=== PATIENT | female | born 1975 | race Caucasian/White ===

== ENCOUNTER 2019-08-06 07:28 | Inpatient (IN) | payer MEDICARE ==
[~2019-08-06] VITALS: Ht 162.6 cm; Wt 87.9 kg
--- NOTE | ~2019-08-06 | HEMODYNAMI ---
PATIENT:MEI ORTIZ MEDICAL RECORD: [id number] : 75 LOCATION:[facility].2136 ADMISSION DATE: 08/06/19 Generatedon:08/09/201914:53 Patient name: MEI ORTIZ Patient #: [id number] SSN: D OB: 1975 Date of study: 08/09/2019 Page: Of Hemodynamic Procedure Report Patient Data Patient Demographics Procedure consent was obtained First Name: MEI Gender: Female Last Name: DIANA : 1975 Patient #: [id number] Age: 44 year(s) Race: Unknown Additional ID: [id number] Contact details [address]: [address] [place] [address] STREET State: [place] City: [place] Zip code: [address] Past Medical History Allergies: No known allergies Admission Admission Data Admission Date: 08/06/2019 Admission Time: 10:01 Room #: [facility]6 Height (in.): 64 BSA: 1.94 (m2) Height (cm.): 162.56 BMI: 33.47 (kg/m2) Weight (lbs.): 195 Weight (kg.): 88.45 Procedure Procedure Types Cath Procedure Peripheral Cath Diagnostic Procedure Coil Binder Peripheral Procedures Fistula Fistulagram with Plasty Procedure Description Procedure Date Procedure Date: 08/09/2019 Procedure Start Time: 13:09 Procedure Staff Name Function Toño Og MD Performing Physician Jovanna Young RT Medical Attendant Ally Crum RN Nurse Mckay Allan RT Scrub Dian Martinez RN Nurse Procedure Data Cath Procedure Fluoroscopy Diagnostic fluoroscopy Total fluoroscopy Time: time: 13.8 min 13.8 min Diagnostic fluoroscopy Total fluoroscopy dose: 297 dose: 297 mGy mGy Contrast Material Contrast Material Type Amount (ml) Isovue 300 105 Procedure Medications Medication Administration Route Dosage Heparin Flush Bag added to field 2 bags (1000units/500ml NS) Lidocaine 1% added to field 20 Versed I.V. 1 mg Fentanyl I.V. 50 mcg Versed I.V. 1 mg Fentanyl I.V. 50 mcg Heparin Bolus I.V. 5000 units Versed I.V. 0.5 mg Fentanyl I.V. 25 mcg Versed I.V. 0.5 mg Fentanyl I.V. 25 mcg Hemodynamics Rest BSA: 1.94 (m2) O2 Consumption: Estimated: 192.02 (ml/min) O2 Consumption indexed : Estimated:98.98 (ml/min/m) Heart Rate: 67 (bpm) Snapshots Pre Cath Intra NCS Post Cath Vital Signs Time Heart Resp SPO2 etCO2 NIBP (mmHg) Rhythm Pain Sedation Rate (ipm) (%) (mmHg) Status Level (bpm) 12:45:45 69 17 100 32 127/82(103) NSR 0 (11) 10(A) , No pain 12:50:03 66 18 99 30.5 116/72(91) NSR 0 (11) 10(A) , No pain 12:54:13 66 18 100 31.2 117/80(101) NSR 0 (11) 10(A) , No pain 12:58:23 69 17 99 23.8 133/77(109) NSR 0 (11) 10(A) , No pain 13:02:37 65 16 99 32.8 129/83(104) NSR 0 (11) 10(A) , No pain 13:06:47 70 17 99 32.7 124/87(105) NSR 0 (11) 10(A) , No pain 13:10:56 68 18 99 33.5 131/85(109) NSR 0 (11) 10(A) , No pain 13:15:09 65 16 99 32 130/86(111) NSR 0 (11) 10(A) , No pain 13:19:23 64 16 99 32 132/81(108) NSR 0 (11) 8(A) , No pain 13:23:36 66 11 99 23.8 123/77(103) NSR 0 (11) 8(A) , No pain 13:27:50 66 10 97 34.2 112/70(85) NSR 0 (11) 8(A) , No pain 13:31:54 69 10 97 42.4 115/75(94) NSR 0 (11) 8(A) , No pain 13:36:02 66 10 99 34.9 119/68(94) NSR 0 (11) 8(A) , No pain 13:40:12 65 11 98 34.2 120/76(94) NSR 0 (11) 8(A) , No pain 13:44:24 66 11 98 26.8 120/76(95) NSR 0 (11) 8(A) , No pain 13:48:32 65 12 99 37.2 120/74(94) NSR 0 (11) 8(A) , No pain 13:52:43 65 10 98 32 114/74(91) NSR 0 (11) 8(A) , No pain 13:56:53 66 11 98 31.2 119/73(100) NSR 0 (11) 8(A) , No pain 14:01:03 66 11 98 31.9 117/79(98) NSR 0 (11) 8(A) , No pain 14:05:11 68 11 98 34.2 125/82(102) NSR 0 (11) 8(A) , No pain 14:09:25 64 11 98 30.4 115/70(97) NSR 0 (11) 8(A) , No pain 14:13:35 66 11 98 32 113/74(89) NSR 0 (11) 8(A) , No pain 14:17:45 66 10 97 31.2 119/70(87) NSR 0 (11) 8(A) , No pain 14:21:59 67 11 98 30.5 111/69(86) NSR 0 (11) 8(A) , No pain 14:26:09 67 11 97 31.2 116/68(91) NSR 0 (11) 8(A) , No pain 14:30:21 71 11 97 37.9 108/66(85) NSR 0 (11) 8(A) , No pain 14:34:29 68 12 91 37.9 119/70(94) NSR 0 (11) 8(A) , No pain 14:38:38 66 13 98 28.2 119/76(92) NSR 0 (11) 8(A) , No pain 14:42:50 65 10 97 32 112/71(87) NSR 0 (11) 8(A) , No pain 14:47:00 71 9 98 28.2 111/70(100) NSR 0 (11) 8(A) , No pain 14:51:06 72 12 98 29.7 108/70(76) NSR 0 (11) 8(A) , No pain Medications Time Medication Route Dose Verified Delivered Reason Notes Effe ctiveness by by 13:12:36 Heparin Flush added 2 Toño Lundberg used for Bag to bags Lenka Og MD procedure (1000units/500ml field MUÑOZ NS) 13:12:50 Lidocaine 1% added 20ml Toño Lundberg for local to vial Lenka Og MD anesthetic field 13:15:11 Versed I.V. 1 mg Toño Ally for Radames Og RN sedation 13:15:28 Fentanyl I.V. 50 Toño Casei for mcg Juan Og RN sedation 13:21:38 Versed I.V. 1 mg Toño Dian for Juan Og RN sedation 13:21:46 Fentanyl I.V. 50 Toño Casei for mcg Juan Og RN sedation 13:24:57 Heparin Bolus I.V. 5000 Toño Dian Per units Juan Og RN physician 13:50:54 Versed I.V. 0.5 Toño Dian for mg Juan Og RN sedation 13:51:04 Fentanyl I.V. 25 Toño Dian for mcg Juan Og RN sedation 14:06:00 Versed I.V. 0.5 Toño Dian for mg Juan Og RN sedation 14:06:10 Fentanyl I.V. 25 Toño Dian for mcg Juan Og RN sedation Procedure Log Time Note 12:40:30 Patient Height : 64 inches 12:40:35 Patient Weight : 195 lbs 12:41:01 Time tracking: Regular hours (M-F 7:00 - 5:00) 12:41:25 Plan of Care:Hemodynamics will remain stable., Cardiac rhythm will remain stable., Comfort level will be maintained., Respiratory function will remain adequate., Patient/ family verbilizes understanding of procedure., Procedure tolerated without complication., Recovers from procedure without complications.. 12:41:39 Patient received from Med II to IR Alert and oriented. Tansferred to table in Supine position. 12:41:44 Signed procedure consent form obtained from patient. 12:41:58 H&P Date Dictated: 08/09/2019 Within 30 days and on chart.. 12:41:59 Pre-procedure instructions explained to patient. 12:42:00 Pre-op teaching completed and patient verbalized understanding. 12:42:02 Family unavailable. 12:42:04 Patient NPO since Midnight. 12:42:15 Patient allergic to No known allergies 12:42:24 Patient diabetic? No. 12:42:25 - 12:42:27 ----Pre-sedation anethsthesia assessment.---- 12:42:30 Previous problem with sedation/anesthesia? No ? 12:42:33 Snore? Yes 12:42:35 Sleep apnea? No 12:42:37 Deviated septum? No 12:42:39 Opens mouth fully? Yes 12:42:41 Sticks out tongue? Yes 12:42:50 Airway obstruction? No ? 12:42:54 Dentures? No ? 12:42:57 - 12:43:06 IV patent on arrival in right forearm with D5/.45%NaCl at KVO. 12:43:23 Left Arm was prepped with chlora-prep and draped in sterile fashion. 12:43:25 - 12:43:31 Use device set IR Diagnostic 12:43:32 Tegaderm 4 x 4 (1626W) opened to sterile field. 12:43:33 Sterile Angiographic Pack opened to sterile field. 12:43:34 Bag Decanter (2002S) opened to sterile field. 12:43:57 St Sid 6FR 5cm sheath opened to sterile field. 12:43:59 GLIDE CATHETER 5FR ANGLED 65cm (CG507) opened to sterile field. 12:44:09 Micropuncture VSI 4FR kit opened to sterile field. 12:44:15 DOC .035 wire ([id number]) opened to sterile field. 12:44:33 - 12:44:36 ECG and BP/O2 sat monitors applied to patient. 12:44:38 Vital chart was started 12:44:40 Baseline sample Acquired. 12:44:41 Full Disclosure recording started 12:44:43 - 12:45:15 Fire Safety Assessment: A--An alcohol-based skin anteseptic being used preoperatively., C--Open oxygen or nitrous oxide is being used. 12:45:38 5) <15 or on dialysis Very severe, or end stage kidney failure. 13:02:06 - 13:08:59 Physician arrived 13:09:00 --------ALL STOP TIME OUT------ 13:09:01 Final Timeout: patient, procedure, and site verified with staff and physician. All members of the team are in agreement. 13:09:23 Procedure started. 13:09:30 Local anesthetic to left arm with Lidocaine 1% by Toño Og MD.INITIAL ACCESS ONLY 13:09:34 Venous access obtained using ultrasound guidance. 13:12:36 Heparin Flush Bag (1000units/500ml NS) 2 bags added to field was administered by Toño Og MD; used for procedure; Verbal order read back and verified. 13:12:50 Lidocaine 1% 20ml vial added to field was administered by Toño Og MD; for local anesthetic; Verbal order read back and verified. 13:15:11 Versed 1 mg I.V. was administered by Ally Crum RN; for sedation; Verbal order read back and verified. 13:15:28 Fentanyl 50 mcg I.V. was administered by Dian Martinez RN; for sedation; Verbal order read back and verified. 13:21:38 Versed 1 mg I.V. was administered by Dian Martinez RN; for sedation; Verbal order read back and verified. 13:21:46 Fentanyl 50 mcg I.V. was administered by Dian Martinez RN; for sedation; Verbal order read back and verified. 13:24:57 Heparin Bolus 5000 units I.V. was administered by Dian Martinez RN; Per physician; Verbal order read back and verified. 13:29:45 Inflate balloon Inflation number: 1 A Evercross 6 x 6 x 135 Balloon ([id number]) was prepped and advanced across the Undefined1 , then inflated . 13:30:08 GRAY 260 wire (F43937) opened to sterile field. 13:30:21 INFLATOR BasixTOUCH (DT1575) opened to sterile field. 13:36:28 St Sid 6FR 5cm sheath opened to sterile field. 13:37:18 Arrow 6Fr TREROTOLA thrombectomy opened to sterile field. 13:38:32 GLIDE WIRE ANGLE 180cm (XZ0693) opened to sterile field. 13:41:31 Inflate balloon Inflation number: 2 A Evercross 5 x 4 x 135 Balloon ([id number]) was prepped and advanced across the Undefined1 , then inflated . 13:50:54 Versed 0.5 mg I.V. was administered by Dian Martinez RN; for sedation; Verbal order read back and verified. 13:51:04 Fentanyl 25 mcg I.V. was administered by Dian Martinez RN; for sedation; Verbal order read back and verified. 13:56:10 BENTSON 145cm wire (V70420) opened to sterile field. 13:59:52 GLIDE WIRE Super Stiff Angled 260cm (SU7638) opened to sterile field. 14:00:05 TORQUE DEVICE PLASTIC .038 ( TD01) opened to sterile field. 14:01:50 BENTSON 145cm wire (O75418) opened to sterile field. 14:05:09 Carmen 5Fr OTW embolectomy catheter opened to sterile field. 14:06:00 Versed 0.5 mg I.V. was administered by Dian Martinez RN; for sedation; Verbal order read back and verified. 14:06:10 Fentanyl 25 mcg I.V. was administered by Dian Martinez RN; for sedation; Verbal order read back and verified. 14:26:36 SUTURE ETHILON 2-0 BLK MONO FS opened to sterile field. 14:26:39 SUTURE ETHILON 2-0 BLK MONO FS opened to sterile field. 14:38:49 GLIDE WIRE ANGLE 180cm (CW9029) opened to sterile field. 14:42:06 GLIDE WIRE Super Stiff Angled 260cm (GY1303) opened to sterile field. 14:47:20 Procedure ended.(Physican Out) 14:47:29 Fluoroscopy time 13.80 minutes. 14:47:34 Fluoroscopy dose: 297 mGy 14:47:34 Flurop Dose total: 297 14:47:42 Contrast amount:Isovue 300 105ml. 14:50:43 Procedure and supply charges have been captured, reviewed, submitted an d are correct. 14:53:16 Report given to [employer] II. 14:53:40 Vital chart was stopped Intervention Summary Intervention Notes Time ActionType Lesion and Equipment Used Action# Pressure Duration Attributes 13:29:45 Inflate Undefined1 Evercross 6 x 6 1 0 00:00 balloon x 135 Balloon ([id number]) 13:41:31 Inflate Undefined1 Evercross 5 x 4 2 0 00:00 balloon x 135 Balloon ([id number]) Device Usage Item Name Manufacture Quantity Catalog Number Hospital Part Current M inimal Lot# / Charge Number Stock Stock Serial# Code Tegaderm 4 x 4 3M 1 1626W 555009 716479 101195 5 (1626W) Sterile Cardinal 1 [id number] 963911 255205 5 Angiographic Health Pack Bag Decanter Microtek 1 614826 48536 498394 5 () Medical Inc. St Sid 6FR 5cm St Sid 2 669825 120950 677735 5 [id number] sheath [id number] GLIDE CATHETER Terumo 1 CG507 644103 272005 5 5FR ANGLED 65cm (CG507) Micropuncture VSI VASCULAR 1 7266V 400310 851531 5 VSI 4FR kit SOLUTIONS DOC .035 wire Cook Medical 1 I74103 705103 904456 5 (W99696) Evercross 6 x 6 Medtronic 1 [id number] 358036 141620 5 x 135 Balloon ([id number]) GRAY 260 wire Cook Medical 1 I52794 127315 02047 937217 5 (N06123) INFLATOR Merit 1 SE9857 109551 470459 718040 5 [facility] (HA5113) Arrow 6Fr Teleflex 1 [id number] 929860 316971 756328 5 TREROTOLA thrombectomy GLIDE WIRE Terumo 2 XV7389 438191 899104 851008 5 ANGLE 180cm (GH0908) Evercross 5 x 4 Medtronic 1 [id number] 307551 786374 522016 5 x 135 Balloon ([id number]) BENTSON 145cm [employer] Medical 2 B58778 090626 738177 5 wire (X72885) GLIDE WIRE Terumo 2 AJ7994 498146 154247 625917 5 Super Stiff Angled 260cm (GG9519) TORQUE DEVICE [place] 1 TD01 558605 993577 843429 5 PLASTIC .038 ( Scientific TD01) Carmen 5Fr OTW Stauffer 1 [id number] 449871 701165 022218 5 embolectomy Lifesciences catheter SUTURE ETHILON Ethicon 2 664H 116957 399080 5 2-0 BLK MONO FS Signature Audit [place] Stage Time Signature Unsigned Intra-Procedure 08/09/2019 Jovanna Young 2:53:36 PM RT(R) [facility] [address] [place] [place] [address]
[2019-08-06] MEDS ORDERED: PREDNISONE1 MG PO (07:34)
[2019-08-06] MEDS ORDERED: FERROUS SULFAT325 MG PO (07:34)
[2019-08-06] MEDS ORDERED: CYCLOBENZAPRINE10 MG PO (07:34)
[2019-08-06] MEDS ORDERED: LIPITOR10 MG PO (07:35)
[2019-08-06] MEDS ORDERED: IMURAN50 MG PO (07:35)
[2019-08-06] MEDS ORDERED: MAG-OX 400 MG400 MG PO (07:35)
[2019-08-06] MEDS ORDERED: RENA-VITE TABL0.8 MG PO (07:35)
[2019-08-06] MEDS ORDERED: HYDRALAZINE HCL50 MG PO (07:36)
[2019-08-06] MEDS ORDERED: COREG25 MG PO (07:36)
[2019-08-06] MEDS ORDERED: NORVASC5 MG PO (07:36)
[2019-08-06] MEDS ORDERED: PHOSLO667 MG PO (07:36)
[2019-08-06] MEDS ORDERED: LASIX80 MG PO (07:37)
[2019-08-06] MEDS ORDERED: ULTRAM50 MG PO (07:37)
[2019-08-06] MEDS ORDERED: CYMBALTA30 MG PO (07:37)
--- NOTE | 2019-08-06 07:53 | NUR ---
URINE SPECIMEN SENT TO LAB; LABS DRAWN VIA LAB PERSONNAL.
[2019-08-06 08:03] LABS: BASOPHILS 0.4 % (0-2); HEMATOCRIT 28.2 % (36.0-48.0); IMMATURE GRANULOCYTES 0.2 % (0-5); LYMPHOCYTES 14.1 % (15-50); MCH 29.9 pg (26.0-34.0); MCHC 31.9 g/dL (31.0-37.0); MCV 93.7 fL (80.0-100.0); MEAN PLATELET VOLUME 8.4 fL (7.4-10.4); MONOCYTES 11.8 % (2-11); NEUTROPHILS 67.5 % (40-80); PLATELET COUNT 307 10x3/uL (130-400); RBC 3.01 10x6/uL (4.00-5.40); WBC 5.3 10x3/uL (4.8-10.8)
[2019-08-06 08:04] LABS: BILIRUBIN NEGATIVE (NEGATIVE); GLUCOSE NEGATIVE (NEGATIVE); KETONE NEGATIVE (NEGATIVE); NITRITE NEGATIVE (NEGATIVE); UROBILINOGEN NORMAL (NORMAL)
[2019-08-06 08:06] LABS: RED CELLS - URINE 0-5 /hpf (0-5)
[2019-08-06 08:07] LABS: BACTERIA MANY /hpf (NEGATIVE)
[2019-08-06 08:15] LABS: ANION GAP 12.5 mmol/L (8-16); CALCIUM 9.2 mg/dL (8.5-10.1); CARBON DIOXIDE 29.9 mmol/L (21.0-32.0); CREATININE - SERUM 3.2 mg/dL (0.6-1.3); POTASSIUM - SERUM 3.4 mmol/L (3.5-5.1)
[2019-08-06 08:22] LABS: ALBUMIN 2.6 g/dL (3.4-5.0); PROTEIN - SERUM 6.6 g/dL (6.4-8.2)
[2019-08-06 08:54] VITALS: BP 164/109
--- NOTE | 2019-08-06 09:48 | NUR ---
PT AWAKE AND ALERT; NO NEEDS NOTED; UPDATED ON PLAN OF CARE AND DELAYS IN CARE; WILL CONTINUE TO MONITOR.
--- NOTE | 2019-08-06 11:00 | NUR ---
CONSENT FORMS SIGNED
--- NOTE | 2019-08-06 11:10 | NUR ---
PT HAS TAKEN HER HOME MEDICATIONS WITH A SIP OF WATER, EKG, AND CHEST X-RAY COMPLETED PER REQUEST VERBAL PHONE ORDER.
--- NOTE | 2019-08-06 13:44 | NUR ---
I CALLED SURGERY AND SPOKE TO VI THE CONSENTS ARE WRONG IN WRITING THEM. SHE STATES THAT SHE HAS NO ORDERS EITHER. MYSELF AND DAVID MEZA PRIMARY NURSE PULLED CONSENTS OUT OF CHART, I CALLED AND TRIED TO TALK TO JAD ESQUEDA RN TO EXPLAIN WE CAN'T HAVE THIS WRITTEN PERMIT. SHE WENT AHEAD AND PLACED A NURSING MESSAGE IN THE SYSTEM SO THAT WE CAN RE-WRITE CONSENT.
--- NOTE | 2019-08-06 13:52 | NUR ---
INSERTION OF TUNNEL HEMODIALYSIS CATHER CONSET FROM TO BE COMPLETED FOR PT; RECIEVED FROM DR. RICHARD VIA VERBAL PHONE ORDER
--- NOTE | 2019-08-06 13:59 | NUR ---
NEW CONSENTS SIGNED FOR SX.
[2019-08-06 14:01] VITALS: BP 123/67
--- NOTE | 2019-08-06 14:06 | NUR ---
PT TAKEN TO SX VIA BED.
[2019-08-06 16:05] VITALS: BP 137/66
--- NOTE | 2019-08-06 16:05 | NUR ---
PT RETURNED FROM HEMOSPLIT PLACEMENT SX VIA BED. ALERT AND ORIENTED. C/O PAIN GAVE TRAMADOL. VS STBALE. RIGHT CHEST HEMOSPLIT DRESSING C/D/I ICE PACK ON CHEST. CALLED DIALYSIS AND STATED PT WAS BACK. THEY SAID THEY WILL CALL WHEN THEY ARE READY FOR PT. I VERBALIZED UNDERSTANDING.
--- NOTE | 2019-08-06 16:50 | NUR ---
PT TAKEN TO DIALYSIS VIA BED.
--- NOTE | 2019-08-06 17:13 | NUR ---
PT STATING SHE IS STILL IN A LOT OF PAIN AFTER RECEIVING TRAMADOL. CALLED AND SPOKE WITH ANAI OTOOLE AND SHE STATES GIVE NORCO 7.25 ONE TIME NOW AND BUPRENEX 0.2MG Q6HP. I VERBALIZED UNDERSTANDING.
--- NOTE | 2019-08-06 17:13 | NUR ---
PT STATING SHE IS STILL IN A LOT OF PAIN AFTER RECEIVING TRAMADOL. CALLED AND SPOKE WITH ANAI OTOOLE AND SHE STATES GIVE NORCO 7.5 ONE TIME NOW AND BUPRENEX 0.2MG Q6HP. I VERBALIZED UNDERSTANDING.
--- NOTE | 2019-08-06 17:31 | NUR ---
RN TO DO ADMISSION ASSESSMENT.
--- NOTE | 2019-08-06 18:08 | NUR ---
SCD'S PLACED ON PT'S LEGS BILATERALLY.
[2019-08-06 18:09] VITALS: BP 153/96
[2019-08-06 18:23] VITALS: BP 123/67; BMI 33.5
--- NOTE | 2019-08-06 19:30 | NUR ---
RECEIVED REPORT, WILL ASSUME CARE OF PT, IN DIALYSIS NOW
[2019-08-06 20:00] VITALS: BP 157/102
--- NOTE | 2019-08-06 20:18 | NUR ---
RECEIVED BACK FROM DIALYSIS, DENIES ANY NEEDS, BED IS LOW, SRX2, CALL LIGHT IN REACH, WILL CONTINUE PLAN OF CARE
[2019-08-07] VITALS: BP 148/99
[2019-08-07 04:00] VITALS: BP 148/96
--- NOTE | 2019-08-07 05:00 | NUR ---
I have reviewed this patient and I concur with the Shift Assessment completed by the Licensed Practical Nurse today this shift.
[2019-08-07 06:16] LABS: BASOPHILS 0 % (0-2); EOSINOPHILS 0 % (0-7); HEMATOCRIT 27.7 % (36.0-48.0); IMMATURE GRANULOCYTES 0.2 % (0-5); LYMPHOCYTES 6.9 % (15-50); MCH 30.4 pg (26.0-34.0); MCHC 32.5 g/dL (31.0-37.0); MCV 93.6 fL (80.0-100.0); MEAN PLATELET VOLUME 8.6 fL (7.4-10.4); MONOCYTES 8.3 % (2-11); NEUTROPHILS 84.6 % (40-80); PLATELET COUNT 343 10x3/uL (130-400); RBC 2.96 10x6/uL (4.00-5.40); RDW 16.6 % (11.5-14.5); WBC 6.5 10x3/uL (4.8-10.8)
[2019-08-07 06:28] LABS: ANION GAP 14.6 mmol/L (8-16); CALCIUM 8.8 mg/dL (8.5-10.1); CARBON DIOXIDE 27.1 mmol/L (21.0-32.0); CREATININE - SERUM 3.7 mg/dL (0.6-1.3); POTASSIUM - SERUM 3.7 mmol/L (3.5-5.1)
--- NOTE | 2019-08-07 07:39 | NUR ---
SITTING UP IN BED. AXO. DENIES NEEDS OR PAIN AT THIS TIME. CALL LIGHT WITHIN REACH. RR EVEN AND UNLABORED. BED IN LOWEST POSITION. WILL CONTINUE TO MONITOR.
[2019-08-07 10:17] VITALS: BP 150/89
[2019-08-07 13:16] VITALS: BP 130/106
[2019-08-07 13:28] VITALS: Ht 162.6 cm; Wt 87.9 kg
[2019-08-07 16:37] VITALS: BP 136/86
--- NOTE | 2019-08-07 17:30 | NUR ---
I have reviewed this patient and I concur with the Shift Assessment completed by the Licensed Practical Nurse today this shift.
--- NOTE | 2019-08-07 19:34 | NUR ---
RECEIVED REPORT, WILL ASSUME CARE OF PT, WATCHING TV, DENIES ANY NEEDS AT THIS TIME, BED IS LOW, SRX2, CALL LIGHT IN REACH, WILL CONTINUE PLAN OF CARE
[2019-08-07 20:00] VITALS: BP 122/79
[2019-08-08] VITALS: BP 127/82
--- NOTE | 2019-08-08 01:43 | NUR ---
I have reviewed this patient and I concur with the Shift Assessment completed by the Licensed Practical Nurse today this shift.
[2019-08-08 04:00] VITALS: BP 131/75
--- NOTE | 2019-08-08 08:39 | NUR ---
PATIENT IS ON THE PHONE. MEDS GIVEN PER AUG. IV TO THE RIGHT FOREARM, SALINE LOCKED. NO O2 IS NOTED. PT IS CONCERNED WITH NOT DOING DIALYSIS EVERYDAY. WENT OVER PTS LAB VALUES TO ASSURE HER THAT DIALYSIS IS NOT URGENT TODAY. PATIENT PLEASED WITH THIS INFORMATION. REQUESTING PAIN MEDICATION. MEDICATION AND FRESH WATER GIVEN. BED IS IN LOW POSITION AND CALL LIGHT IS IN REACH. PATIENT DENIES ANY ADDITIONAL NEEDS AT THIS TIME
[2019-08-08 10:56] VITALS: BP 131/79
[2019-08-08 14:31] VITALS: BP 123/80
[2019-08-08 18:37] VITALS: BP 127/84
--- NOTE | 2019-08-08 19:14 | NUR ---
ALERT AND OX4 AND DENIES NEEDS AT THIS TIME BED IS LOW AND LOCKED CALL LIGHT IS WITH PT
[2019-08-08 20:00] VITALS: BP 128/78
[2019-08-09] VITALS: BP 130/89
[2019-08-09 04:00] VITALS: BP 146/92
--- NOTE | 2019-08-09 04:00 | NUR ---
I have reviewed this patient and I concur with the Shift Assessment completed by the Licensed Practical Nurse today this shift.
[2019-08-09 05:54] LABS: BASOPHILS 0.3 % (0-2); EOSINOPHILS 2.1 % (0-7); HEMATOCRIT 25.2 % (36.0-48.0); IMMATURE GRANULOCYTES 0.5 % (0-5); LYMPHOCYTES 19.4 % (15-50); MCHC 31.7 g/dL (31.0-37.0); MCV 94.4 fL (80.0-100.0); MEAN PLATELET VOLUME 8.7 fL (7.4-10.4); MONOCYTES 14.4 % (2-11); NEUTROPHILS 63.3 % (40-80); PLATELET COUNT 304 10x3/uL (130-400); RBC 2.67 10x6/uL (4.00-5.40); RDW 16.6 % (11.5-14.5); WBC 6.1 10x3/uL (4.8-10.8)
[2019-08-09 06:14] LABS: APTT 30.6 SECONDS (22.8-39.4); INR 0.97 (0.85-1.17); PROTIME 12.8 SECONDS (11.6-15.0)
[2019-08-09 06:17] LABS: ANION GAP 12.9 mmol/L (8-16); CALCIUM 8.5 mg/dL (8.5-10.1); CARBON DIOXIDE 27.3 mmol/L (21.0-32.0); CREATININE - SERUM 3.9 mg/dL (0.6-1.3); PHOSPHOROUS 4.1 mg/dL (2.5-4.9); POTASSIUM - SERUM 3.2 mmol/L (3.5-5.1)
[2019-08-09 07:33] VITALS: BP 134/91
--- NOTE | 2019-08-09 10:03 | NUR ---
K+3.2, PAGE PLACED TO RENAL HYPOID GEAR TESTER, WAITING ON CALLBACK.
[2019-08-09 12:16] VITALS: BP 106/76
[2019-08-09 15:47] VITALS: BP 113/73
--- NOTE | 2019-08-09 16:25 | OP ---
PATIENT NAME: MEI ECHAVARRIA MEDICAL RECORD: [id number] :75 LOCATION:D. D.2136 ADMISSION DATE:08/06/19 SURGEON: AUGUSTIN POPE MD DATE OF OPERATION: 08/06/2019 REFERRING PHYSICIAN: Dr. Whittaker and Dr. Long. PREOPERATIVE DIAGNOSES: End-stage renal disease and dependence on renal dialysis and mechanical complication of peritoneal dialysis with nonfunctioning peritoneal dialysis catheter and thrombosis times 2 weeks of left brachial artery to translocated basilic vein arteriovenous fistula. SECONDARY DIAGNOSES: Cryoglobulinemia and hypertension. POSTOPERATIVE DIAGNOSES: End-stage renal disease and dependence on renal dialysis and mechanical complication of peritoneal dialysis with nonfunctioning peritoneal dialysis catheter and thrombosis times 2 weeks of left brachial artery to translocated basilic vein arteriovenous fistula. OPERATION PERFORMED: Insertion of a right internal jugular 19-cm HemoSplit dialysis catheter with ultrasound and fluoroscopic guidance. SURGEON: Augustin Pope MD ANESTHESIA: General with LMA per FRAME ALIGNER. PREOPERATIVE NOTE: Ms. Echavarria is a 44-year-old white female patient from [place], [place]. She has cryoglobulinemia and end-stage renal disease and has been dialyzing for the past year with a peritoneal dialysis catheter and apparently doing well with that. She says 2 days ago, it suddenly stopped filling and that the nurses in [place] had been unable to restore function to the peritoneal dialysis catheter. Also about 2 weeks ago or so, she says that her left brachial translocated basilic AV fistula thrombosed and there has not been any attempt to declot it in that time. However, the patient now has no way to dialyze and she was brought to the hospital today since OPC is not open on Fridays. She is brought to the operating room now to implant a tunneled dialysis catheter. DESCRIPTION OF PROCEDURE: Under general anesthetic in supine position, the patient was prepped and draped in sterile manner. The right internal jugular vein was located with B-mode duplex ultrasound with color flow and the vein was noted to be of normal caliber and without any obstructing lesions or thrombus. It was fully collapsible. A small incision was made at the base of the neck and a micropuncture needle and guidewire were inserted under fluoroscopy. Wire and catheter exchange was performed and serial dilators were passed and lastly a peel-away dilator introducer. I chose a 19-cm HemoSplit, made an incision beneath the clavicle and pulled the catheter from that up to the cervical incision. It was then inserted into the venous circulation as the peelaway sheath was removed. This was all done under fluoroscopy and the dialysis catheter tips came to rest deep in the right atrium in very good position. Both lumens were accessed and aspirated, free return of blood was confirmed from both. They were then flushed and then heparin locked with heparin 1000 units per cc. The cervical incision was closed with interrupted inverted 3-0 Vicryl and OPERATIVE REPORT [id number] MEI ECHAVARRIA Dermabphan glue. It was dressed with Maxorb Ag, Tegaderm, and Cavilon skin prep. The catheter was sutured to the skin near the entry site with 2-0 Prolene and a standard dressing including a chlorhexidine biodisc was applied. The patient at that point was awakened and taken to the recovery room having tolerated the procedure quite well. PLAN: The patient's peritoneal dialysis catheter should be evaluated with a catheterogram and possibly manipulated with radiologic guidewire or Carmen catheter. Also, her fistula should be examined with ultrasound and if possible a mechanical thrombolysis procedure performed. Should these fail, then she is probably a good candidate for a left upper extremity brachiobasilic loop prosthetic graft. In the recovery room, the patient has expressed a desire to stop peritoneal dialysis and go on to hemodialysis which at this point seems a questionable judgment. At any rate, if she wishes, I will be happy to perform either a laparoscopic revision of her catheter or remove it for her. Blood lost during the procedure was insignificant and unreplaced. Sponges, instruments, and needles were accounted for. No drain was used and no surgical specimen submitted for histopathology. PLAN: For the patient to be discharged today and further workup done through OPC. I will be happy to see the patient back to remove her catheter or whatever even sometime next week. TRANSINT:[id number] Voice Confirmation ID: [id number] DOCUMENT ID: [id number] cc: AUGUSTIN Tinsley MD at 1625 CC: NAKUL CRONIN RN, HILDA LONG and HILDA WHITTAKER [id number] DICTATION DATE: 08/06/19 1607 COMMUNICATIONS PROJECT MANAGER: 08/06/192112 ADM IN [facility] [address] [place] [address]
--- NOTE | 2019-08-09 19:17 | NUR ---
AWAKE AND ALERT PT HAS NEEDS SEEN TOO VS WNL AND BED LOW AND LOCKED CALL LIGHT IS WITH PT
--- NOTE | 2019-08-09 20:28 | NUR ---
WILL HOLD OFF PD CATH FOR A BIT TO ALLOW FLUID TO WARM
[2019-08-09 20:34] VITALS: BP 135/83
[2019-08-10 00:31] VITALS: BP 120/72
[2019-08-10 04:50] LABS: BASOPHILS 0.1 % (0-2); HEMATOCRIT 24.8 % (36.0-48.0); IMMATURE GRANULOCYTES 0.8 % (0-5); LYMPHOCYTES 14.9 % (15-50); MCH 30.2 pg (26.0-34.0); MCHC 32.3 g/dL (31.0-37.0); MCV 93.6 fL (80.0-100.0); MEAN PLATELET VOLUME 8.7 fL (7.4-10.4); MONOCYTES 7.9 % (2-11); NEUTROPHILS 74.3 % (40-80); PLATELET COUNT 321 10x3/uL (130-400); RBC 2.65 10x6/uL (4.00-5.40); RDW 16.6 % (11.5-14.5); WBC 7.4 10x3/uL (4.8-10.8)
[2019-08-10 05:06] LABS: ANION GAP 14.1 mmol/L (8-16); CALCIUM 7.9 mg/dL (8.5-10.1); CARBON DIOXIDE 25.8 mmol/L (21.0-32.0); CREATININE - SERUM 3.8 mg/dL (0.6-1.3)
[2019-08-10 05:09] LABS: POTASSIUM - SERUM 2.9 mmol/L (3.5-5.1)
[2019-08-10 05:19] VITALS: BP 125/74
--- NOTE | 2019-08-10 07:00 | NUR ---
RECEIVED REPORT. ASSUMED CARE OF PATIENT. PATIENT LYING IN BED WITH EYES OPEN. RESP EVEN AND UNLABORED. NO DISTRESS. DENIES NEEDS. PATIENT IS PD EXCHANGE EVERY 6 HOURS, DUE AT 8AM. NO DISTRESS.
--- NOTE | 2019-08-10 08:34 | NUR ---
MEDICATED FOR PAIN. TOLERATING PD EXCHANGE WELL AT THIS TIME. CONSUMING AM MEAL.
[2019-08-10 09:10] LABS: HEPATITIS C ANTIBODY <0.1 S/CO RAT (0.0-0.9)
[2019-08-10 10:17] VITALS: BP 143/88
--- NOTE | 2019-08-10 11:49 | NUR ---
RESTING IN BED. AWAITING ON DISCHARGE PAPERWORK. NO DISTRESS. CALL LIGHT WITHIN REACH.
--- NOTE | 2019-08-10 13:40 | MORECARE ---
CASE MANAGEMENT DISCHARGE SUMMARY PATIENT: MEI ORTIZ UNIT: [id number] ADM DATE: 08/06/19 AGE: 44 : 75 SEX: F ROOM/BED: D.2076 AUTHOR: ALEM,DOC PHYSICIAN: REFERRING PHYSICIAN: HILDA LONG MD DATE OF SERVICE: 08/10/19 Discharge Plan Patient Name: MEI ORTIZ Facility: [facility]:[place] : 1975 Planned Disposition: Home Anticipated Discharge Date: 08/10/19 Discharge Date: Expected LOS: 4 Initial Reviewer: [id number] Initial Review Date: 08/10/2019 Generated: 08/10/19 2:40 pm Comments DCP- Discharge Planning Updated by [email or web address]: Sean Hidalgo on 08/10/19 12:[address] Patient Name: MEI ORTIZ Admission Status: ER Accout number: [id number] Admission Date: 08-06-2019 : 1975 Admission Diagnosis: Attending: HILDA LONG Current LOS: 4 Anticipated DC Date: 08-10-2019 Planned Disposition: Home Primary Insurance: MEDICARE A & B Discharge Planning Comments: CM MET WITH PT IN ROOM TO DISCUSS DISCHARGE PLANNING AND NEEDS. PT REPORTS LIVING AT HOME INDEPENDENTLY WITH HER MINOR CHILDREN. PT HAS NO MEDICAL EQUIPMENT AND NO OUTSIDE SERVICES ASSISTING IN THE HOME. PT DOES HAVE HOME PERITONEAL DIALYSIS EQUIPMENT AT HOME AND SUPPLIES ARE FROM [employer]. PT REPORTS HER "PD" CATHETER IS WORKING NOW. CM DISCUSSED AVAILABILITY OF HOME HEALTH, REHAB SERVICES AND MEDICAL EQUIPMENT. PT DENIES DISCHARGE NEEDS, REPORTS SHE IS DRIVING HERSELF HOME AT DISCHARGE TODAY. IMPORTANT MESSAGE FROM MEDICARE PROVIDED AND EXPLAINED. POLICY CANCELLATION CLERK NURSE NOTIFIED. Heavy Machinery Assembler: Sean Hidalgo DCPIA - Discharge Planning Initial Assessment Updated by [id number]: Sean Hidalgo on 08/10/19 1:35 pm * Is the patient Alert and Oriented? Yes * How many steps to enter\\exit or inside your home? * PCP DR. ARIANNA MICHELLE [place] * Pharmacy [facility] IN [place] * Preadmission Environment Home with Family * ADLs Independent * Equipment None * Other Equipment NO MEDICAL EQUIPMENT PROVIDER PREFERNCE * List name and contact numbers for known caregivers / representatives who currently or will assist patient after discharge: HERBERT RYDER, * Verbal permission to speak to the caregivers and representatives has been obtained from the patient. N/A * Community resources currently utilized Other * Please name any agencies selected above. HOME [employer], SUPPLIES FROM [facility] * Additional services required to return to the preadmission environment? No * Can the patient safely return to the preadmission environment? Yes * Has this patient been hospitalized within the prior 30 days at any hospital? No Coverage Notice Reviewer: [id number] Alla Hidalgo Notice Issued Date-Time: 08/10/2019 12:10 Notice Type: IM Discharge Notice Notice Delivered To: Patient Relationship to Patient: Senior Cost Estimator Name: Delivery Method: HAND - Hand Delivered [place] Days: Prior Verbal Notification: Recipient Understood Notice: Yes Recipient Signature: Yes Med Rec Note Co-signed by Attending: Coverage Notice Comment: Patient Name: MEI ORTIZ Page [id number] at 1340 All edits/amendments must be made on the electronic document DICTATION DATE: 08/10/19 1340 HELPER SHEAR OPERATOR: MARYANNE 08/10/19 1340 RPT#: [id number] DC DATE: STATUS: ADM IN [facility] [address] [place] [address] END OF REPORT
--- NOTE | 2019-08-10 14:07 | NUR ---
PD EXCHANGE INITIATED AT THIS TIME PRIOR TO PATIENT DISCHARGING TO HOME AT 1500. PATIENT TOLERATING PD EXCHANGE WELL. NO DISTRESS.
[2019-08-10 14:27] VITALS: BP 133/66
--- NOTE | 2019-08-10 14:30 | NUR ---
PD EXCHANGE COMPLETE AT THIS TIME. TOLERATED PD EXCHANGE WELL. NO DISTRESS.
--- NOTE | 2019-08-10 15:15 | NUR ---
20 GAUGE IV REMOVED FROM RIGHT WRIST. CATHETER TIP INTACT. NO BLEEDING FROM SITE. 2X2 GAUZE APPLIED AND SECURED WITH BANDAID. PATIENT TOLERATED IV REMOVAL WELL SHE IS BEING DISCHARGED TO HOME.
--- NOTE | 2019-08-10 15:20 | NUR ---
PATIENT REFUSED WHEELCHAIR. PATIENT LEFT UNIT AMBULATORY AND IS DRIVING HERSELF HOME. PATIENT LEFT UNIT WITH ALL PERSONAL BELONGINGS IN NO ACUTE DISTRESS. PATIENT THANKED THIS FINAL ASSEMBLY INSPECTOR FOR ALL CARES RENDERED. NO DISTRESS UPON LEAVING UNIT.
--- NOTE | 2019-08-10 15:20 | NUR ---
DISCHARGE INSTRUCTIONS PROVIDED TO PATIENT. PATIENT VERBALIZED UNDERSTANDING OF ALL INSTRUCTIONS PROVIDED. PATIENT PROVIDED WITH HARD SCRIPT FOR TRAMADOL.
== END 2019-08-10 15:20 | disposition home or self-care (01) | DRG 907 ==
LOC: D.ER 07:28 → D.M2 10:01
PROVIDERS: Emergency Medicine; Surgery; ADMIT Internal Medicine Nephrology; ATTEND Internal Medicine Nephrology
PROC: 05HM33Z Insertion of Infusion Device into Right Internal Jugular Vein, Percutaneous Approach (ICD-10-PCS; 2019-08-06)
PROC: 0JH63XZ Insertion of Tunneled Vascular Access Device into Chest Subcutaneous Tissue and Fascia, Percutaneous Approach (ICD-10-PCS; principal; 2019-08-06 15:00)
PROC: 03C83ZZ Extirpation of Matter from Left Brachial Artery, Percutaneous Approach (ICD-10-PCS; 2019-08-09)
PROC: 03W Upper Arteries, Revision (ICD-10-PCS; 2019-08-09)
PROC: BW211ZZ Computerized Tomography (CT Scan) of Abdomen and Pelvis using Low Osmolar Contrast (ICD-10-PCS; 2019-08-09)
DX: T85.858A Stenosis due to other internal prosthetic devices, implants and grafts, initial encounter (principal); N18.6 End stage renal disease; I12.0 Hypertensive chronic kidney disease with stage 5 chronic kidney disease or end stage renal disease; D89.2 Hypergammaglobulinemia, unspecified; Y84.9 Medical procedure, unspecified as the cause of abnormal reaction of the patient, or of later complication, without mention of misadventure at the time of the procedure